=== PATIENT | male | born 1985 | race Caucasian/White ===

== ENCOUNTER 2016-12-09 22:31 | Emergency (ER) | payer OTHER ==
[2016-12-09 22:39] VITALS: BP 147/93
[2016-12-09] MEDS ORDERED: Ondansetron 4 MG/2 ML SDV IVPUSH ONE (23:03)
[2016-12-09] MEDS ORDERED: Sodium Chloride 0.9% 1,000 ML IV STA (23:03)
[2016-12-09] MEDS ORDERED: Sodium Chloride 0.9% 10 ML Syringe FLUSH PRN ×2 (23:03→23:08)
[2016-12-09] MEDS ORDERED: HYDROmorphone 1 MG/ML Syringe IVPUSH ONE (23:05)
[2016-12-09] MEDS ORDERED: Iopamidol 612 MG/ML 150 ML Bottle IVPUSH ONE (23:08)
[2016-12-09] MEDS ORDERED: Diatrizoate Meglumine/Diatrizoate Sodium 37% 120 ML Bottle PO ONE (23:09)
--- NOTE | 2016-12-10 00:14 | EDM.PDOC ---
ED HPI GENERAL MEDICAL PROBLEM - General Chief Complaint: Abdominal Pain Stated Complaint: [facility] Time Seen by Provider: 12/09/16 22:44 Source of Information: Reports: Patient History Limitations: Reports: No Limitations - History of Present Illness INITIAL COMMENTS - FREE TEXT/NARRATIVE: The patient presents with lower abdominal pain. This started last night. It was in his chest and upper abdomen and then down to his lower abdomen. The pain has progressively gotten worse. He has nausea but no vomiting. His last bowel movement was a couple days ago. He has no diarrhea. He had no dysuria. He has no fever or chills. He did not eat any bad food that he knows of and he has not been around anyone that has been sick. Onset: Gradual Duration: Day(s): Location: Reports: Abdomen Quality: Reports: Sharp Severity: Moderate Improves with: Reports: None Worsens with: Reports: None Associated Symptoms: Reports: Nausea/Vomiting. 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 12/10/16 [Rx] Past Medical History Cardiovascular History: Reports: Heart Murmur, Other (See Below) Other Cardiovascular History: leaking heart valve Musculoskeletal History: Reports: Fracture, Other (See Below) Other Musculoskeletal History: herniated disc, torn ACL Neurological History: Reports: Concussion Psychiatric History: Reports: Bipolar - Past Surgical History Cardiovascular Surgical History: Reports: None Social & Family History - Family History Family Medical History: Noncontributory - Tobacco Use Smoking Status *Q: Former Smoker Years of Tobacco use: 10 Packs/Tins Daily: 3 Used Tobacco, but Quit: Yes Month Tobacco Last Used: 3 years ago - Caffeine Use Caffeine Use: Reports: Soda - Recreational Drug Use Recreational Drug Use: No ED ROS GENERAL - Review of Systems Review Of Systems: See Below Constitutional: Reports: No Symptoms HEENT: Reports: No Symptoms Respiratory: Reports: No Symptoms Cardiovascular: Reports: No Symptoms Endocrine: Reports: No Symptoms GI/Abdominal: Reports: Abdominal Pain, Nausea. Denies: Vomiting : Reports: No Symptoms Musculoskeletal: Reports: No Symptoms Skin: Reports: No Symptoms ED EXAM, GI/ABD - Physical Exam Exam: See Below Exam Limited By: No Limitations General Appearance: Alert, No Apparent Distress Ears: Normal External Exam Nose: Normal Inspection Head: Atraumatic, Normocephalic Neck: Normal Inspection Respiratory/Chest: No Respiratory Distress, Lungs Clear, Normal Breath Sounds Cardiovascular: Regular Rate, Rhythm, No Edema, No Murmur GI/Abdominal: Soft, No Organomegaly, No Mass, Tenderness (Moderate pain to the right upper and lower abdomen) Extremities: Normal Inspection Course - Vital Signs Last Recorded V/S: Last Vital Signs Temp 97.3 F 12/09/16 22:35 Pulse 94 12/09/16 22:35 Resp 16 12/09/16 22:35 BP 147/93 H 12/09/16 22:35 Pulse Ox 100 12/09/16 22:35 - Orders/Labs/Meds Orders: Active Orders 24 hr Category Date Time Status Peripheral IV Care [RC] . DIRECTED Care 12/09/16 23:04 Active Abdomen Pelvis w Cont [CT] Stat Exams 12/10/16 00:30 Taken Pantoprazole [ProTONIX] Med 12/10/16 01:18 Once 40 mg PO ONETIME ONE Sodium Chloride 0.9% [Saline Flush] Med 12/09/16 23:03 Active 10 ml FLUSH ASDIRECTED PRN Sodium Chloride 0.9% [Saline Flush] Med 12/09/16 23:08 Active 10 ml FLUSH ONETIME PRN ED Antiemetic Medication Reflex [OM.PC] Stat Oth 12/09/16 23:04 Ordered Peripheral IV Insertion Adult [OM.PC] Stat Oth 12/09/16 23:03 Ordered Medication Orders Sodium Chloride (Saline Flush) 10 ml FLUSH ASDIRECTED PRN PRN Reason: Keep Vein Open Last Admin: 12/09/16 23:20 Dose: 10 ml Sodium Chloride (Saline Flush) 10 ml FLUSH ONETIME PRN PRN Reason: IV FLUSH Last Admin: 12/10/16 00:39 Dose: 10 ml Labs: Laboratory Tests 12/09/16 12/09/16 12/09/16 Range/Units 23:14 23:14 23:14 WBC 7.96 (4.23-9.07) K/mm3 RBC 5.19 (4.63-6.08) M/mm3 Hgb 15.6 (13.7-17.5) gm/L Hct 42.9 (40.1-51.0) % MCV 82.7 (79.0-92.2) fl MCH 30.1 (25.7-32.2) pg MCHC 36.4 H (32.2-35.5) g/dl RDW Std Deviation 37.8 (35.1-43.9) fL Plt Count 239 (163-337) K/mm3 MPV 10.3 (9.4-12.3) fl Neut % (Auto) 59.9 (34.0-67.9) % Lymph % (Auto) 31.7 (21.8-53.1) % Greene % (Auto) 8.2 (5.3-12.2) % Eos % (Auto) 0 L (0.8-7.0) Baso % (Auto) 0.1 (0.1-1.2) % Neut # (Auto) 4.77 (1.78-5.38) K/mm3 Lymph # (Auto) 2.52 (1.32-3.57) K/mm3 Greene # (Auto) 0.65 (0.30-0.82) K/mm3 Eos # (Auto) 0.00 L (0.04-0.54) K/mm3 Baso # (Auto) 0.01 (0.01-0.08) K/mm3 Sodium 144 (136-145) mEq/L Potassium 4.0 (3.5-5.1) mEq/L Chloride 107 (98-107) mEq/L Carbon Dioxide 25 (21-32) mEq/L Anion Gap 16.0 H (5-15) BUN 11 (7-18) mg/dL Creatinine 1.1 (0.7-1.3) mg/dL Est Cr Clr Drug Dosing 104.58 mL/min Estimated GFR (MDRD) > 60 (>60) mL/min BUN/Creatinine Ratio 10.0 L (14-18) Glucose 114 H (74-106) mg/dL Calcium 8.7 (8.5-10.1) mg/dL Total Bilirubin 0.5 (0.2-1.0) mg/dL AST 27 (15-37) U/L ALT 54 (16-63) U/L Alkaline Phosphatase 72 (46-116) U/L Total Protein 7.4 (6.4-8.2) g/dl Albumin 4.0 (3.4-5.0) g/dl Globulin 3.4 gm/dL Albumin/Globulin Ratio 1.2 (1-2) Lipase 101 (73-393) U/L Urine Color (Yellow) Urine Appearance (Clear) Urine pH (5.0-8.0) Ur Specific [place] (1.005-1.030) Urine Protein (Negative) Urine Glucose (UA) (Negative) Urine Ketones (Negative) Urine Occult Blood (Negative) Urine Nitrite (Negative) Urine Bilirubin (Negative) Urine Urobilinogen (0.2-1.0) Ur Leukocyte Esterase (Negative) Urine RBC (0-5) /hpf Urine WBC (0-5) /hpf Ur Epithelial Cells Ur Squamous Epith Cells (0-5) /hpf Urine Bacteria (FEW) /hpf Urine Mucus (FEW) /hpf H. pylori IgG Antibody Negative (NEGATIVE) 12/09/16 Range/Units 23:15 WBC (4.23-9.07) K/mm3 RBC (4.63-6.08) M/mm3 Hgb (13.7-17.5) gm/L Hct (40.1-51.0) % MCV (79.0-92.2) fl MCH (25.7-32.2) pg MCHC (32.2-35.5) g/dl RDW Std Deviation (35.1-43.9) fL Plt Count (163-337) K/mm3 MPV (9.4-12.3) fl Neut % (Auto) (34.0-67.9) % Lymph % (Auto) (21.8-53.1) % Greene % (Auto) (5.3-12.2) % Eos % (Auto) (0.8-7.0) Baso % (Auto) (0.1-1.2) % Neut # (Auto) (1.78-5.38) K/mm3 Lymph # (Auto) (1.32-3.57) K/mm3 Greene # (Auto) (0.30-0.82) K/mm3 Eos # (Auto) (0.04-0.54) K/mm3 Baso # (Auto) (0.01-0.08) K/mm3 Sodium (136-145) mEq/L Potassium (3.5-5.1) mEq/L Chloride (98-107) mEq/L Carbon Dioxide (21-32) mEq/L Anion Gap (5-15) BUN (7-18) mg/dL Creatinine (0.7-1.3) mg/dL Est Cr Clr Drug Dosing mL/min Estimated GFR (MDRD) (>60) mL/min BUN/Creatinine Ratio (14-18) Glucose (74-106) mg/dL Calcium (8.5-10.1) mg/dL Total Bilirubin (0.2-1.0) mg/dL AST (15-37) U/L ALT (16-63) U/L Alkaline Phosphatase (46-116) U/L Total Protein (6.4-8.2) g/dl Albumin (3.4-5.0) g/dl Globulin gm/dL Albumin/Globulin Ratio (1-2) Lipase (73-393) U/L Urine Color Yellow (Yellow) Urine Appearance Clear (Clear) Urine pH 6.5 (5.0-8.0) Ur Specific [place] 1.020 (1.005-1.030) Urine Protein Negative (Negative) Urine Glucose (UA) Negative (Negative) Urine Ketones Negative (Negative) Urine Occult Blood Negative (Negative) Urine Nitrite Negative (Negative) Urine Bilirubin Negative (Negative) Urine Urobilinogen 0.2 (0.2-1.0) Ur Leukocyte Esterase Negative (Negative) Urine RBC Not seen (0-5) /hpf Urine WBC 0-5 (0-5) /hpf Ur Epithelial Cells Not Reportable Ur Squamous Epith Cells 0-5 (0-5) /hpf Urine Bacteria Not seen (FEW) /hpf Urine Mucus Not seen (FEW) /hpf H. pylori IgG Antibody (NEGATIVE) Meds: Medications Generic Name Dose Route Start Last Admin Trade Name Freq PRN Reason Stop Dose Admin Sodium Chloride 10 ml 12/09/16 23:03 12/09/16 23:20 Saline Flush FLUSH 10 ml ASDIRECTED PRN Administration Keep Vein Open Sodium Chloride 10 ml 12/09/16 23:08 12/10/16 00:39 Saline Flush FLUSH 10 ml ONETIME PRN Administration IV FLUSH Discontinued Medications Generic Name Dose Route Start Last Admin Trade Name Brea PRN Reason Stop Dose Admin Diatrizoate Meglum/Diatrizoate Sod 120 ml 12/09/16 23:09 12/10/16 00:38 Gastrografin 37% PO 12/09/16 23:10 90 ml ONETIME ONE Administration Hydromorphone HCl 1 mg 12/09/16 23:05 12/09/16 23:27 Dilaudid IVPUSH 12/09/16 23:06 1 mg ONETIME ONE Administration Sodium Chloride 1,000 mls @ 1,000 mls/hr 12/09/16 23:03 12/09/16 23:24 Normal Saline IV 12/10/16 00:02 1,000 mls/hr .BOLUS STA Administration Iopamidol 150 ml 12/09/16 23:08 12/10/16 00:38 Isovue-300 (61%) IVPUSH 12/09/16 23:09 125 ml ONETIME ONE Administration Ondansetron HCl 4 mg 12/09/16 23:03 12/09/16 23:25 Zofran IVPUSH 12/09/16 23:04 4 mg ONETIME ONE Administration - Re-Assessments/Exams Free Text/Narrative Re-Assessment/Exam: 12/10/16 00:16 I ordered an IV NS 1L bolus, zofran 4mg IV, dilaudid 1g IV, labs, UA and CT of the abdomen and pelvis. 12/10/16 01:19 His CBC and CMP look good. His UA shows no UTI. His CT shows nothing acute. He feels better. I will give him a dose of protonix. I suspect this may be an ulcer. Departure - Departure Time of Disposition: 01:20 Disposition: Home, Self-Care 01 Condition: good Clinical Impression: Abdominal pain Qualifiers: Abdominal location: right upper quadrant Qualified Code(s): R10.11 - Right upper quadrant pain - Discharge Information Prescriptions: Omeprazole Magnesium [Prilosec Otc] 20 mg PO DAILY #14 tablet.dr Referrals: Eric Canela MD [Physician] - 1 Week Forms: ED Department Discharge Additional Instructions: Take prilosec OTC daily for 2 weeks. Follow up with Dr Canela if you are not better in 1 week. Please return if you are worse. - My Orders Last 24 Hours: My Active Orders 12/09/16 23:03 Sodium Chloride 0.9% [Saline Flush] 10 ml FLUSH ASDIRECTED PRN Peripheral IV Insertion Adult [OM.PC] Stat 12/09/16 23:04 Peripheral IV Care [RC] . DIRECTED ED Antiemetic Medication Reflex [OM.PC] Stat 12/09/16 23:08 Sodium Chloride 0.9% [Saline Flush] 10 ml FLUSH ONETIME PRN 12/10/16 00:30 Abdomen Pelvis w Cont [CT] Stat 12/10/16 01:18 Pantoprazole [ProTONIX] 40 mg PO ONETIME ONE - Assessment/Plan Last 24 Hours: My Active Orders 12/09/16 23:03 Sodium Chloride 0.9% [Saline Flush] 10 ml FLUSH ASDIRECTED PRN Peripheral IV Insertion Adult [OM.PC] Stat 12/09/16 23:04 Peripheral IV Care [RC] . DIRECTED ED Antiemetic Medication Reflex [OM.PC] Stat 12/09/16 23:08 Sodium Chloride 0.9% [Saline Flush] 10 ml FLUSH ONETIME PRN 12/10/16 00:30 Abdomen Pelvis w Cont [CT] Stat 12/10/16 01:18 Pantoprazole [ProTONIX] 40 mg PO ONETIME ONE
[2016-12-10] MEDS ORDERED: Pantoprazole 40 MG Tab.CR PO ONE (01:18)
--- NOTE | 2016-12-10 09:37 | CT ---
CT abdomen and pelvis Technique: Multiple axial sections were obtained from above the dome of the diaphragm inferiorly through the pubic symphysis. Intravenous and oral contrast has been given. Comparison: No previous abdominal imaging is available. Findings: Visualized lung bases show nothing acute. Liver shows diffuse fatty infiltration. No focal abnormality is identified. Spleen appears within normal limits. Adrenal glands show no nodule. Pancreas is within normal limits. Kidneys show symmetric contrast enhancement without hydronephrosis or mass. Gallbladder shows no calcified gallstones. Aorta shows no aneurysmal dilatation. No retroperitoneal adenopathy or mesenteric abnormalities are seen. Appendix is seen which appears normal. No pelvic mass or adenopathy is seen. No free fluid is identified. Delayed images were obtained through the abdomen and pelvis which shows symmetric contrast excretion from both kidneys. No ureteral dilatation is seen. Contrast seen throughout the ureters with contrast also noted within the bladder. Bone window settings were reviewed which show mild degenerative change at L4-L5 and L5-S1. Impression: 1. Incidental findings. Nothing acute is identified on CT study of the abdomen and pelvis. Diagnostic code #3 I agree with preliminary report issued by [employer] ([employer] preliminary report dictated on 12/10/16, 2:00 AM Central Time)
== END 2016-12-10 01:38 | disposition home or self-care (01) ==
LOC: JD.ED 22:31
DX: R10.11 Right upper quadrant pain (principal); R10.31 Right lower quadrant pain; Z79.899 Other long term (current) drug therapy; Z88.1 Allergy status to other antibiotic agents; Z88.2 Allergy status to sulfonamides; Z88.8 Allergy status to other drugs, medicaments and biological substances; Z87.891 Personal history of nicotine dependence; Z98.890 Other specified postprocedural states
CPT/HCPCS: 36415; 74177; 80053; 81001; 83690; 85025; 86677; 96361; 96374; 96375; 99285; A9270; J1170; J2405; J7040; J7050; Q9963; Q9967; 99284